=== PATIENT | male | born 1955 | race Caucasian/White ===

== ENCOUNTER 2021-01-24 09:21 | Inpatient (IN) ==
--- NOTE | 2021-01-13 16:18 | PAT Medication Instructions ---
Medication Instructions Date of Service January 13, 2021 Home Medications hydrocodone 7.5 mg-acetaminophen 325 mg tablet 1 tab PO Q8H PRN nifedipine 90 mg tablet,extended release 90 mg PO QAM prednisone 20 mg tablet 20 mg PO UD verapamil 40 mg tablet 40 mg PO QAM Continue as directed prednisone 20 mg tablet 20 mg PO UD Take morning of surgery With a small sip of water, OTHERWISE NOTHING TO EAT OR DRINK AFTER MIDNIGHT: hydrocodone 7.5 mg-acetaminophen 325 mg tablet 1 tab PO Q8H PRN (okay to take up to 4 hours prior to surgery if needed) nifedipine 90 mg tablet,extended release 90 mg PO QAM verapamil 40 mg tablet 40 mg PO QAM Other Notes If you have any questions please call us at [phone] or [phone] or [phone] or [phone]
--- NOTE | 2021-01-17 10:52 | Anesthesiology Consultation ---
Date of Service January 17, 2021 Assessment & Plan (1) Encounter for pre-operative examination: Chart Review Chart Review: Acceptable Risk for Surgery (pending preop Covid testing results ) and Patient seen in Pre Admission Testing Per PAT appt on 01/17/21, patient denies any recent travel or large group activities. Pt vaccinated for Covid. No known Covid positive contacts or Covid related symptoms. No known Covid infection in the past 90 days. Preop Covid testing scheduled 01/27/21= will await results. Educated on importance of self quarantining, social distancing and wearing mask in public both for the patient after Covid testing done Teaching & Discussion Pre-Anesthesia Teaching/Discussion Notes: Instructed NPO after midnight before surgery,except medications with 15 cc of water. Medication instructions provided according to the [facility] guidelines. History Surgery Operation Date: 01/31/21 10:05 Proposed Procedures p L4-S1 Decompression Fusion, Spinal Cord Monitoring - Eliceo Calixto DO Height/Weight Height: 6 ft Weight: 106.2 kg Allergies Allergy/AdvReac Type Severity Reaction Status Date / Time No Known Allergies Allergy Verified 01/13/21 14:46 Medications Home Medications Medication Instructions Recorded Confirmed Last Taken hydrocodone 7.5 mg-acetaminophen 1 tab PO Q8H PRN 01/13/21 01/13/21 Unknown 325 mg tablet nifedipine 90 mg tablet,extended 90 mg PO QAM 01/13/21 01/13/21 Unknown release prednisone 20 mg tablet 20 mg PO UD 01/13/21 01/13/21 Unknown verapamil 40 mg tablet 40 mg PO QAM 01/13/21 01/13/21 Unknown Past Medical History Medical History Herniated disc Located lumbar disc- causing severe pain. Not able to move or walk much Hypertension Exercise / Class Metabolic Activity II 4-5 Yardwork/Stairs/Walk up hill (one flight of stairs - no chest pain or SOB. With exception to the last three weeks- back pain severe- decreased activ ity ) Past Surgical History Surgical History Hx of wisdom tooth extraction Past Anesthesia History No Hx of Anesthesia Complications and No Family Hx of Anesthesia Complications History of PONV No Hx of PONV and Hx of Motion Sickness Social History Smoking Status: Never smoker Do You Dip or Chew Tobacco: No Hx Alcohol Use: Yes Alcohol type: hard liquor alcohol intake frequency: a few times a month Hx Substance Use: No substance use type: does not use Review of Systems Hx of snoring - no witnessed apnea. No hx of sleep study Patient denies chest pain, shortness of breath, dyspnea on exertion, reflux, cough, wheezing, palpitations. No hx of seizures, stroke, NM. No hx of blood clots or blood transfusions On two weeks tapering steroid- has one more week left as of 01/17/21 Physical Exam Vital Signs VITALS BP 155/83 P 91 TEMP 97.7 SP02 100% RESP 16 Constitutional no acute distress ENMT Mouth: no TMJ clicking Thyromental Distance: > or= 3.5 Finger Breadths (3.5) Mallampati Class: I Missing molar Neck + limited neck extension (moderate ) Respiratory normal respiratory effort; no respiratory distress Auscultation: lungs clear to auscultation bilaterally; no wheezes Cardiovascular Rate/Rhythm: regular rate and regular rhythm Heart Sounds: no murmur Vessels: no carotid bruit Musculoskeletal Spine: no pain with cervical ROM Extremities: extremities normal to inspection Psychiatric Orientation: alert Lab Results Anesthesia Preop Results Results Anesthesia Widget: WBC 10.41 K/uL (4.8-10.8) 01/17/21 Hgb 15.6 g/dL (14.0-18.0) 01/17/21 Hct 46.1 % (42-52) 01/17/21 Plt 452 K/uL (130-400) H 01/17/21 Na 136 mmol/L (136-145) 01/17/21 K 3.8 mmol/L (3.5-5.1) 01/17/21 Cl 103 mmol/L (98-107) 01/17/21 CO2 26 mmol/L (21-32) 01/17/21 BUN 20 mg/dl (7-18) H 01/17/21 Creat 0.95 mg/dl (0.6-1.4) 01/17/21 Glucose Level 132 mg/dl (70-99) H 01/17/21 PT 10.3 Seconds (9.0-12.0) 01/17/21 PTT 24.6 Seconds (21.0-31.0) 01/17/21 INR 1.0 (0.9-1.1) 01/17/21 Urine Color Yellow 01/17/21 Urine Appearance Clear (Clear) 01/17/21 Urine pH 5.0 (4.5-7.5) 01/17/21 Urine Specific [place] 1.009 (1.000-1.030) 01/17/21 Urine Protein Negative (Negative) 01/17/21 Urine Glucose (UA) Negative (Negative) 01/17/21 Urine Ketones Trace (Negative) H 01/17/21 Urine Blood Negative (Negative) 01/17/21 Urine Nitrite Negative (Negative) 01/17/21 Urine Bilirubin Negative (Negative) 01/17/21 Urine Urobilinogen Negative (Negative) 01/17/21 Urine Leukocyte Esterase Negative (Negative) 01/17/21 Blood Type A Positive 01/17/21 Antibody Screen NEGATIVE 01/17/21 Testing Electrocardiogram Date: 01/17/21 Findings: + NSR @ (84bpm ) Normal EKG per cardio. Chest X-Ray Date: 01/17/21 Findings: + NAD
[~2021-01-24 09:21] MED LIST: ACETAMINOPHEN 500 MG TAB PO SCH; CeleBREX 200 MG CAP PO SCH; GABAPENTIN 300 MG CAP PO SCH; LR 15ML/HR IV SCH; ceFAZolin 2000MG 2,000 MG/15 ML SYR IV SCH
[2021-01-24] MEDS ORDERED: NEOSTIGMINE METHYLSULFATE 1 MG/ML 10ML VIAL ONE (10:13)
[2021-01-24] MEDS ORDERED: ONDANSETRON INJ 2 MG/ML 2 ML VIAL ONE (10:13)
[2021-01-24] MEDS ORDERED: DEXAMETHASONE SOD INJ 4 MG/ML VIAL ONE (10:13)
[2021-01-24] MEDS ORDERED: GLYCOPYRROLATE 0.2 MG/ML VIAL ONE (10:13)
[2021-01-24] MEDS ORDERED: PROPOFOL IV EMULSION 10 MG/ML 20 ML VIAL IV ONE (10:13)
[2021-01-24] MEDS ORDERED: ROCURONIUM BROMIDE 10 MG/ML 5 ML VIAL IV ONE ×3 (10:13→12:16)
[2021-01-24] MEDS ORDERED: fentaNYL citrate 100 MCG/2 ML VIAL ONE ×2 (10:14→13:12)
[2021-01-24] MEDS ORDERED: HYDROmorphone INJ 2 MG/ML SYR/VIAL IV PRN (11:01)
[2021-01-24] MEDS ORDERED: BUPIVACAINE/EPINEPHRINE 0.5% MPF 1:200,000 30 ML VIAL ONE (11:01)
[2021-01-24] MEDS ORDERED: ONDANSETRON INJ 2 MG/ML 2 ML VIAL IV PRN ×2 (11:01→15:28)
[2021-01-24] MEDS ORDERED: ATROPINE SULFATE 0.1 MG/ML 10ML SYR IV PRN (11:01)
[2021-01-24] MEDS ORDERED: PROMETHAZINE HCL 12.5 MG in SODIUM CHLORIDE 0.9% 50 ML IV PRN ×2 (11:01→15:28)
[2021-01-24] MEDS ORDERED: ePHEDrine sulfate 50 MG/ML AMP IV PRN (11:01)
--- NOTE | 2021-01-24 11:04 | History & Physical Bridge Note ---
Date of Service January 24, 2021 History & Physical Bridge Note I have examined the patient, reviewed the History & Physical and in the interval since the performance of the History & Physical I have noted the following changes of clinical significance: no changes noted
--- NOTE | 2021-01-24 11:05 | History & Physical Report ---
Date of Service January 24, 2021 Assessment & Plan (1) Neurogenic claudication due to lumbar spinal stenosis: Plan: L4-S1 decompression fusion History of Present Illness Chief Complaint: Back and leg pain Primary Care Provider: SHANTELL DRAPER This is a 65-year-old male presents with chronic persistent back and leg pain. Failing course of nonoperative care is here for surgical intervention. Allergies Allergy/AdvReac Type Severity Reaction Status Date / Time No Known Allergies Allergy Verified 01/24/21 09:44 Home Medications Medication Instructions Recorded Confirmed Type hydrocodone 7.5 mg-acetaminophen 1 tab PO Q8H PRN 01/13/21 01/24/21 History 325 mg tablet nifedipine 90 mg tablet,extended 90 mg PO QAM 01/13/21 01/24/21 History release prednisone 20 mg tablet 20 mg PO UD 01/13/21 01/24/21 History verapamil 40 mg tablet 40 mg PO QAM 01/13/21 01/24/21 History Past Med/Surg History Medical History Herniated disc Located lumbar disc- causing severe pain. Not able to move or walk much Hypertension Surgical History Hx of wisdom tooth extraction Social History Smoking Status: Never smoker Second Hand Exposure: No; Do You Dip or Chew Tobacco: No; Tobacco Cessation Education Requested by Patient: No Hx Alcohol Use: Yes Alcohol type: hard liquor Hx Substance Use: No Preferred Language: Chinese Communication Ability: Effective Supervisor [employer] Required: No Beliefs That Will Affect Care: None Current Living Situation: Spouse Other Information That Helps Us Care for You: No Feels Safe at Home: Yes Safety Concerns: Feels Safe At This Time Assistive Devices: Walker Physical Exam Physical Exam: Patient is alert and oriented Heart regular in rhythm Lungs clear to auscultation Results & Data ([facility]) Vital Signs (Past 12 Hours) Vital Signs Temp Pulse Resp BP Pulse Ox 01/24/21 09:52 36.6 C 107 H 18 140/78 98
[2021-01-24] MEDS ORDERED: FLOSEAL HEMOSTATIC MATRIX 10ML TOP ONE (12:20)
--- NOTE | 2021-01-24 14:06 | Operative Report ---
Post Operative Report Pre & Post Diagnosis Operation Date: 01/24/21 11:35 Pre-Op Diagnosis: Neurogenic claudication due to lumbar spinal stenosis Post-Op Diagnosis: Neurogenic claudication due to lumbar spinal stenosis I identified the patient and participated in the time-out.: Yes Procedure Operation Date: 01/24/21 11:35 Actual Procedures #1 lumbar compression with bilateral medial facetectomies and foraminotomies L3- L4, L4-L5 and L5-S1. #2 posterior spinal fusion L4-5 L5-S1. #3 placed posterior instrumentation L4-5 L5-S1. #4 interbody fusion L4-5 L5-S1. #5 placement peek cage 13 x 26 mm at L4-5 and L5-S1. #6 placement locally harvested morselized autograft in the posterior lateral gutters. #7 placement infuse collagen sponge, master graft in the posterior lateral gutters and I factor in the interbody space. Surgeon Eliceo Calixto, DO Occupational Therapy Technician Ling Perry Estimated Blood Loss 350 Findings See Below Patient is 6 foot tall weighing over 105 kg with a BMI in excess of 31. Patient's body habitus did contribute to significant technical difficulty requiring her deepest retractors and longest instruments in order to perform his procedure. This at least 25% increase to the operative time. Specimens None Indications This is a 65-year-old male who presents with bulge diagnosis after failing course of nonoperative care is here for the above-mentioned procedure. Description of Procedure Patient was met with identified informed consent obtained. Patient was then taken to the operative suite underwent a patient placed in a prone position the [place] abdominal spine frame. All bony prominences well-padded eyes inspected to ensure no external pressure placed upon the. This point lumbar spine was prepped and draped in a sterile fashion. Sharp dissection with the assistance of Bovie cautery was performed down to and exposing the lamina and transverse processes of L4-L5 and sacral ala bilaterally. From caudal cephalad fashion complete laminectomy of L5 L4 partial laminectomy of L3 was performed including bilateral medial facetectomies and foraminotomies addressing severe spinal stenosis. Pedicle screws then placed in L4-L5 and S1 levels bilaterally with assistance of fluoroscopy and the proper sized brian placed. By way of a transforamen approach and left complete discectomy of L5-S1 was performed endplates curetted to subcortical bleeding bone and a 13 x 26 mm peek cage filled with I factor tapped in position. Then proceeded L4-L5 and again by way of a transforaminal portion left complete discectomy was performed endplates curetted to subcortically bone and again a 13 x 26 mm peek cage filled with I factor tapped in position. The rods were then compressed locked in final position bilaterally. The transverse processes of L 4 L5 and sacral ala burred to subcortical bleeding bone. Infuse collagen sponge master graft and local harvested morselized autograft was placed in the posterior gutters. 15 round GOLDIE drain inserted. The incision was then closed with 1 Vicryl fascia 2-0 Vicryl subcutaneously and 4 Monocryl for final skin closure. Steri-Strip sterile dressings placed. Patient waken taken PACU stable condition. Please note spinal cord monitoring was utilized at the procedure no changes noted. Lastly Ling Perry was present at the entire procedure about the patient positioning complex portions of the surgery and final skin closure. I attest to the content of the Intraoperative Record and any orders documented therein. Any exceptions are noted below.
[2021-01-24] MEDS: fentaNYL citrate 100 MCG/2 ML VIAL IV PRN ×2 (14:37→14:48)
--- NOTE | 2021-01-24 14:52 | Fluoroscopy Report ---
FL lumbar spine 2-3V HISTORY: 65 years-old Male L4-S1 DECOMPRESSION AND FUSION COMPARISON: None TECHNIQUE: 2 spot fluoroscopic images of the lumbar spine were obtained utilizing 31.0 seconds fluoro scopy time FINDINGS: Posterior interbody brian fusion with discectomy changes are noted at L4-S1. Alignment appears satisfac tory. The hardware appears intact. No unexpected opaque foreign body identified. IMPRESSION: Fluoroscopic assistance as above. ACT 112: Negative or not required by law. The above report was generated using voice recognition software. It may contain grammatical, syntax o r spelling errors. Electronically signed by: Bright Mott M.D. 01/24/2021 2:51 PM
--- NOTE | 2021-01-24 15:06 | Anesthesiology Progress Note ---
Date of Service January 24, 2021 Anesthesia Post Procedure Vital Signs Vital Signs: Temp Pulse Pulse Resp BP BP Pulse Ox 01/24/21 14:55 84 16 155/88 H 98 01/24/21 14:45 79 22 152/84 H 98 01/24/21 14:35 73 20 145/79 H 100 01/24/21 14:25 74 19 152/86 H 100 01/24/21 14:17 37.2 C 82 20 147/79 H 100 01/24/21 09:52 36.6 C 107 H 18 140/78 98 Pain Intensity Right Lateral Thigh: Pain Intensity: 3 Back: Pain Intensity: 3 Transfer of Care Handoff Completed per policy Notes Mental Status: alert / awake / arousable and participated in evaluation Patient Amnestic to Procedure: Yes Nausea / Vomiting: adequately controlled Pain: adequately controlled Airway Patency, RR, SpO2: stable & adequate BP & HR: stable & adequate Hydration State: stable & adequate Anesthetic Complications: no major complications apparent and Pt Satisfied with anesthetic care
[2021-01-24] MEDS ORDERED: traMADol HCL 50 MG TABLET PO PRN (15:28)
[2021-01-24] MEDS ORDERED: HYDROmorphone INJ 1 MG/ML SYRINGE IV PRN (15:28)
[2021-01-24] MEDS ORDERED: ONDANSETRON 4 MG OD TAB PO PRN (15:28)
[2021-01-24] MEDS ORDERED: DO NOT ADMINISTER FLU VACCINE PRN (15:28)
[2021-01-24] MEDS ORDERED: predniSONE 20 MG TAB PO SCH (15:28)
[2021-01-24] MEDS ORDERED: SOD PHOSPHATE/SOD BIPHOSPHATE ENEMA 132 ML BTL PR PRN (15:28)
[2021-01-24] MEDS ORDERED: METOCLOPRAMIDE HCL INJ 5 MG/ML 2 ML VIAL IV PRN (15:28)
[2021-01-24] MEDS ORDERED: hydrOXYzine HCl 25 MG TAB PO PRN (15:28)
[2021-01-24] MEDS ORDERED: LORazepam 0.5 MG TAB PO PRN (15:28)
[2021-01-24] MEDS ORDERED: NALOXONE HCL 0.4 MG/1 ML VIAL/CARP IV PRN (15:28)
[2021-01-24] MEDS ORDERED: ALUMINUM/MAGNESIUM SUSP 30 ML UDC PO PRN (15:28)
[2021-01-24] MEDS ORDERED: ACETAMINOPHEN 500 MG TAB PO PRN (15:28)
[2021-01-24] MEDS ORDERED: MAGNESIUM HYDROXIDE SUSP 30 ML UDC PO PRN (15:28)
[2021-01-24] MEDS ORDERED: DO NOT ADMINISTER PNEUMOCOCCAL VACCINE PRN (15:28)
[2021-01-24] MEDS ORDERED: FAMOTIDINE 20 MG TAB PO PRN (15:28)
[2021-01-24] MEDS ORDERED: diphenhydrAMINE Capsule 25 MG CAP PO PRN (15:28)
[2021-01-24] MEDS ORDERED: HYDROmorphone INJ 0.5 MG/0.5 ML SYR IV PRN (15:28)
[2021-01-24] MEDS ORDERED: LORazepam 0.5 MG/1 ML VIAL IV PRN (15:28)
[2021-01-24] MEDS ORDERED: ACETAMINOPHEN 1,000 MG/100 ML VIAL IV PRN (15:28)
[2021-01-24] MEDS: LACTATED RINGER'S 1,000 ML IV SCH ×2 (16:19→22:49)
[2021-01-24] MEDS: KETOROLAC TROMETHAMINE 15 MG/ML VIAL IV SCH ×2 (17:27→22:31)
[2021-01-24] MEDS: VERAPAMIL HCL 40 MG TAB PO SCH (17:59)
[2021-01-24] MEDS: NIFEdipine EXTENDED REL 30 MG TABCR PO SCH (17:59)
--- NOTE | 2021-01-24 18:06 | Hospitalist Consultation ---
Date of Consultation January 24, 2021 Assessment & Plan (1) Neurogenic claudication due to lumbar spinal stenosis: s/p #1 lumbar compression with bilateral medial facetectomies and foraminotomies L3-L4, L4-L5 and L5-S1. #2 posterior spinal fusion L4-5 L5-S1. #3 placed posterior instrumentation L4-5 L5-S1. #4 interbody fusion L4-5 L5-S1. #5 placement peek cage 13 x 26 mm at L4-5 and L5-S1. #6 placement locally harvested morselized autograft in the posterior lateral gutters. #7 placement infuse collagen sponge, master graft in the posterior lateral gutters and I factor in the interbody space. with Dr Calixto on 01/24 EBL 350cc Pre-op h/h 15.6/46.1 Ordered LR @150cc/hr until able to tolerate PO Cefazolin abx Dose of 4mg dexamethasone was given, expect elevation in WBC on AM labs -- He also just completed a prednisone taper yesterday Pain control, bowel regimen, PT/OT, DVT prophylaxis per primary service Labs in AM (2) Hypertension: Chronic Elevated post-operatively but he did not take his usual medication yet today EKG NSR from pre-admission testing Continue home nifedipine 90mg, verapamil 40mg daily --> dose given now Hydralazine prn SBP >180 or DBP >100 Continue to monitor (3) DVT prophylaxis: Chemical contraindicated Donavon Riggins ordered Dispo: continued inpatient stay Thank you for allowing hospitalist service to participate in the care of Mr Monteiro. Hospitalist service will follow along. History of Present Illness Reason for Consultation: medical management Requesting Physician: Dr Calixto Attending Physician: Eliceo Calixto DO History of Present Illness 65yo male with PMHx significant for hypertension, spinal stenosis failed outpatient management of chronic back pain. He notes he previously had been seen by his PCP and given medications for back pain, saw pain management and failed injections. Also trialed PT. He initially said he saw Dr. Santana because he thought he needed a hip replacement. Recently was on steroids and just completed taper (started at 80mg daily) as switched to by Sekou from ortho spine during initial consultation. He notes last Sunday was unable to get up out of bed and requested to have surgery moved him, which thankfully they were able to accommodate. Underwent L4-S1 decompression fusion with Dr. Calixto today. He notes he did not take his BP medications this morning as he took 10mg pain pill and he notes recently was taking up to 20mg oxycodone at a time from his PCP as the pain was so significant. He notes he has drops with increased pain medications and typically runs BP 140-150s/80s at home and frequently checks this. He does note he is a "responder" to prednisone and noted increases in pressures while on this medication. He just got his BP medications about 30 minutes prior and denied any chest pain , headache, blurred vision/visual changes, shortness of breath, abd pain, n/v. Strength equal to b/l LE. Chronic numbness to R big toe. Ate dinner without issue but not very hungry for this food. Would like to get up to chair when able to -- asked nursing to assist. Plans on remaining inpatient 2-3 days. Never smoker/no chewing tobacco. Wine/drink on a Sunday with the on occasion. Works as a contractor/ Allergies Allergy/AdvReac Type Severity Reaction Status Date / Time No Known Allergies Allergy Verified 01/24/21 09:44 Home Medications Medication Instructions Recorded Confirmed Type hydrocodone 7.5 mg-acetaminophen 1 tab PO Q8H PRN 01/13/21 01/24/21 History 325 mg tablet nifedipine 90 mg tablet,extended 90 mg PO QAM 01/13/21 01/24/21 History release prednisone 20 mg tablet 20 mg PO UD 01/13/21 01/24/21 History verapamil 40 mg tablet 40 mg PO QAM 01/13/21 01/24/21 History Patient History Medical History Herniated disc Located lumbar disc- causing severe pain. Not able to move or walk much Hypertension Surgical History Hx of wisdom tooth extraction Social History Smoking Status: Never smoker Second Hand Exposure: No; Do You Dip or Chew Tobacco: No; Tobacco Cessation Education Requested by Patient: No Hx Alcohol Use: Yes Alcohol type: hard liquor Hx Substance Use: No Preferred Language: Chadian Communication Ability: Effective Hall Cleaner Required: No Beliefs That Will Affect Care: None Current Living Situation: Spouse Other Information That Helps Us Care for You: No Feels Safe at Home: Yes Safety Concerns: Feels Safe At This Time Assistive Devices: Glasses and Walker Review of Systems Review of Systems: All systems reviewed & are unremarkable except as noted in HPI & below Physical Exam Constitutional: WD/WN, vitals as above Eyes: no eyelid abnormality and no scleral abnormality ENMT: mmm Neck: normal visual inspection and trachea midline Respiratory: normal respiratory effort, lungs clear to auscultation on room air Cardiovascular: RRR, no murmur, no edema Gastrointestinal (Abdomen): normal bowel sounds, soft, nontender, no hepatosplenomegaly Musculoskeletal: dressing to lumbar spine c/d/i scant bloody drainage to GOLDIE drain NVI with exception neuropathy R toe to light touch (pressure intact) strength 5/5 b/l LE pulses palpable melvin hose in place Skin: warm, dry Neurologic: PERRL, EOMI, accommodation nl, no face palsy, no dysarthria Psychiatric: A+Ox3, euthymic affect Lymphatic: no cervical or axillary lymphadenopathy Results & Data Results & Data ([facility]) Vital Signs (Past 12 Hours) Vital Signs Temp Pulse Pulse Pulse Resp BP BP 01/24/21 17:29 36.5 C 84 18 180/90 H 01/24/21 16:22 75 16 150/76 H 01/24/21 15:58 36.6 C 82 18 151/74 H 01/24/21 15:20 36.9 C 84 16 153/74 H 01/24/21 15:05 37.4 C 86 16 139/68 01/24/21 14:55 84 16 155/88 H 01/24/21 14:45 79 22 152/84 H 01/24/21 14:35 73 20 145/79 H 01/24/21 14:25 74 19 152/86 H 01/24/21 14:17 37.2 C 82 20 147/79 H 01/24/21 09:52 36.6 C 107 H 18 140/78 Pulse Ox 01/24/21 17:29 95 01/24/21 16:22 97 01/24/21 15:58 95 01/24/21 15:20 95 01/24/21 15:05 96 01/24/21 14:55 98 01/24/21 14:45 98 01/24/21 14:35 100 01/24/21 14:25 100 01/24/21 14:17 100 01/24/21 09:52 98 Laboratory Results 01/24/21 01/24/21 01/24/21 Range/Units 09:40 08:40 08:40 COVID-19 Eval Order Covid19 [facility] SARS-CoV-2, RNA, NAAT NEGATIVE (NEGATIVE) Blood Type A Positive Antibody Screen NEGATIVE Crossmatch See Detail Diagnostic Findings Lumbar Spine X-Ray 01/24/21 11:35 [place] lumbar spine 2-3V HISTORY: 65 years-old Male L4-S1 DECOMPRESSION AND FUSION COMPARISON: None TECHNIQUE: 2 spot fluoroscopic images of the lumbar spine were obtained utilizing 31.0 seconds fluoroscopy time FINDINGS: Posterior interbody brian fusion with discectomy changes are noted at L4-S1. Alignment appears satisfactory. The hardware appears intact. No unexpected opaque foreign body identified. IMPRESSION: Fluoroscopic assistance as above. ACT 112: Negative or not required by law. The above report was generated using voice recognition software. It may contain grammatical, syntax or spelling errors. Electronically signed by: Bright Mott M.D. 01/24/2021 2:51 PM PG Care Time/CCT Total # of Minutes Spent Total Time Spent with Patient: Total time spent is greater than 50% in coordination of care (as documented) at patient's floor/unit and/or counseling patient: Coding Level of Care Code 00694 Inpt Consult Level 3 Diagnoses Neurogenic claudication due to lumbar spinal stenosis M48.062 Hypertension I10 DVT prophylaxis Z29.9
[2021-01-24] MEDS ORDERED: hydrALAZINE HCL 20 MG/ML VIAL IV PRN (18:44)
[2021-01-24] MEDS: ceFAZolin 2000MG 2,000 MG/15 ML SYR IV SCH (20:26)
[2021-01-24] MEDS: DOCUSATE SODIUM/SENNA 50/8.6MG TAB PO SCH (20:26)
[2021-01-24] MEDS: oxyCODONE HCL IR 5 MG TAB (IMMEDIATE RELEASE) PO PRN (21:50)
[2021-01-25] MEDS: POLYETHYLENE (MIRALAX) 17 GM PACK PO SCH ×3 (04:48→17:48)
[2021-01-25] MEDS: KETOROLAC TROMETHAMINE 15 MG/ML VIAL IV SCH ×2 (04:48→10:50)
[2021-01-25] MEDS: ceFAZolin 2000MG 2,000 MG/15 ML SYR IV SCH (04:48)
[2021-01-25 06:45] LABS: Eosinophils # (auto) 0.06 K/uL (0-0.5); Eosinophils % (auto) 0.5 %; Hematocrit (blood only) 39.3 % (42-52); Immature Granulocytes # (auto) 0.02 K/uL (0.00-0.02); Immature Granulocytes % (auto) 0.2 %; Lymphocytes # (auto) 1.87 K/uL (1.2-3.4); Lymphocytes % (auto) 17.1 %; Mean Corpuscular Hemoglobin 30.2 pg (25-34); Mean Corpuscular Hgb Conc 33.1 g/dL (32-36); Mean Corpuscular Volume 91.2 fL (80-100); Mean Platelet Volume 11.1 fL (7.4-10.4); Monocytes # (auto) 0.83 K/uL (0.11-0.59); Monocytes % (auto) 7.6 %; Neutrophils # (auto) 8.14 K/uL (1.4-6.5); Neutrophils % (auto) 74.6 %; Platelet Count 312 K/uL (130-400); RDW Standard Deviation 47.3 fL (36.4-46.3); Red Blood Count 4.31 M/uL (4.7-6.1); White Blood Count 10.92 K/uL (4.8-10.8)
[2021-01-25 07:09] LABS: BUN Creatinine Ratio 14.1 (10-20); Calcium 9.2 mg/dl (8.5-10.1); Creatinine Clr Calc Pharmacy 112.5 ml/min; Est GFR (African American) 107.3 ml/min; Est GFR (Non-African American) 92.6 ml/min; Potassium 3.9 mmol/L (3.5-5.1)
--- NOTE | 2021-01-25 07:53 | Hospitalist Progress Note ---
Date of Service January 25, 2021 Assessment & Plan (1) Neurogenic claudication due to lumbar spinal stenosis: Plan: POD#1 s/p #1 lumbar compression with bilateral medial facetectomies and foraminotomies L3-L4, L4-L5 and L5-S1. #2 posterior spinal fusion L4-5 L5-S1. #3 placed posterior instrumentation L4-5 L5-S1. #4 interbody fusion L4-5 L5-S1. #5 placement peek cage 13 x 26 mm at L4-5 and L5-S1. #6 placement locally harvested morselized autograft in the posterior lateral gutters. #7 placement infuse collagen sponge, master graft in the posterior lateral gutters and I factor in the interbody space. with Dr Calixto on 01/24. EBL 350cc. Pre-op h/h 15.6/46.1 H/h dropped to 13/39.3 -- acute blood loss anemia from surgery as well as some dilutional effect from IVF post-operatively WBC 10.9k but had been on prednisone taper and also dexamethasone 4mg yesterday -- has been afebrile PT/OT/pain control/bowel regimen per primary service DVT proph with SCDs/jalil hemphill (2) Hypertension: Plan: Chronic Elevated post-operatively but he did not take his usual medications prior to surgery due to taking pain medication and having low BPs with such Continue home nifedipine 90mg, verapamil 40mg daily BPs improved --> 132/81 currently Hydralazine prn SBP >180 or DBP >100 Continue to monitor (3) DVT prophylaxis: Plan: Chemical contraindicated Jalil hemphill, SCDs ordered Dispo: continued inpatient stay Thank you for allowing hospitalist service to participate in the care of Mr Monteiro. Hospitalist service will sign off at this time. Please call with any questions/concerns. Admission and Anticipated Discharge Date Admission Date: January 24, 2021 Subjective Patient worked with therapy this morning. Doing well. Pain controlled. Up in chair having IV changed this morning. Symptoms controlled. Plans for d/c in next 1-2 days. Review of Systems Review of Systems: All systems reviewed & are unremarkable except as noted in HPI & below Physical Exam Physical Exam: WN, WD, NAD up in chair having IV changed Head atraumatic, normocephalic Trachea midline without deviation Respiratory without accessory muscle use, distress, audible wheezing or tachypnic, cough Cardiac; RRR, no m/r/g MSK/Neuro: dressing to lumbar spine c/d/i. GOLDIE scant drainage. NVI with exception to light touch R great toe, otherwise sensation to pressure intact. Calves non- tender, pulses palpable bilaterally Skin warm, dry Results & Data Results & Data ([facility]) Vital Signs (Past 12 Hours) Vital Signs Temp Pulse Pulse Resp BP Pulse Ox 01/25/21 07:46 36.9 C 76 16 132/81 97 01/25/21 02:54 36.7 C 76 16 119/65 97 01/24/21 21:47 36.6 C 71 16 143/83 H 99 Laboratory Results 01/25/21 01/25/21 01/24/21 Range/Units 05:48 05:48 09:40 WBC 10.92 H (4.8-10.8) K/uL RBC 4.31 L (4.7-6.1) M/uL Hgb 13.0 L (14.0-18.0) g/dL Hct 39.3 L (42-52) % MCV 91.2 (80-100) fL MCH 30.2 (25-34) pg MCHC 33.1 (32-36) g/dL RDW Std Deviation 47.3 H (36.4-46.3) fL RDW Coeff of Simran 14.0 (11.5-14.5) % Plt Count 312 (130-400) K/uL MPV 11.1 H (7.4-10.4) fL Immature Gran % (Auto) 0.2 % Neut % (Auto) 74.6 % Lymph % (Auto) 17.1 % [place] % (Auto) 7.6 % Eos % (Auto) 0.5 % Baso % (Auto) 0.0 % Neut # (Auto) 8.14 H (1.4-6.5) K/uL Lymph # (Auto) 1.87 (1.2-3.4) K/uL [place] # (Auto) 0.83 H (0.11-0.59) K/uL Eos # (Auto) 0.06 (0-0.5) K/uL Baso # (Auto) 0.00 (0-0.2) K/uL Immature Gran # (Auto) 0.02 (0.00-0.02) K/uL Sodium 137 (136-145) mmol/L Potassium 3.9 (3.5-5.1) mmol/L Chloride 104 (98-107) mmol/L Carbon Dioxide 28 (21-32) mmol/L Anion Gap 5.0 (3-11) BUN 11 (7-18) mg/dl Creatinine 0.81 (0.6-1.4) mg/dl Est Cr Clr Drug Dosing 112.5 ml/min Est GFR ( Amer) 107.3 ml/min Est GFR (Non-Af Amer) 92.6 ml/min BUN/Creatinine Ratio 14.1 (10-20) Glucose 92 (70-99) mg/dl Calcium 9.2 (8.5-10.1) mg/dl COVID-19 Eval Order SARS-CoV-2, RNA, NAAT (NEGATIVE) Blood Type A Positive Antibody Screen NEGATIVE Crossmatch See Detail 01/24/21 01/24/21 Range/Units 08:40 08:40 WBC (4.8-10.8) K/uL RBC (4.7-6.1) M/uL Hgb (14.0-18.0) g/dL Hct (42-52) % MCV (80-100) fL MCH (25-34) pg MCHC (32-36) g/dL RDW Std Deviation (36.4-46.3) fL RDW Coeff of Simran (11.5-14.5) % Plt Count (130-400) K/uL MPV (7.4-10.4) fL Immature Gran % (Auto) % Neut % (Auto) % Lymph % (Auto) % [place] % (Auto) % Eos % (Auto) % Baso % (Auto) % Neut # (Auto) (1.4-6.5) K/uL Lymph # (Auto) (1.2-3.4) K/uL [place] # (Auto) (0.11-0.59) K/uL Eos # (Auto) (0-0.5) K/uL Baso # (Auto) (0-0.2) K/uL Immature Gran # (Auto) (0.00-0.02) K/uL Sodium (136-145) mmol/L Potassium (3.5-5.1) mmol/L Chloride (98-107) mmol/L Carbon Dioxide (21-32) mmol/L Anion Gap (3-11) BUN (7-18) mg/dl Creatinine (0.6-1.4) mg/dl Est Cr Clr Drug Dosing ml/min Est GFR ( Amer) ml/min Est GFR (Non-Af Amer) ml/min BUN/Creatinine Ratio (10-20) Glucose (70-99) mg/dl Calcium (8.5-10.1) mg/dl COVID-19 Eval Order Covid19 [facility] SARS-CoV-2, RNA, NAAT NEGATIVE (NEGATIVE) Blood Type Antibody Screen Crossmatch PG Care Time/CCT Total # of Minutes Spent Total Time Spent with Patient: Total time spent is greater than 50% in coordination of care (as documented) at patient's floor/unit and/or counseling patient: Coding Level of Care Code 41975 Subseq Hosp Care Lvl 1 Diagnoses Neurogenic claudication due to lumbar spinal stenosis M48.062 Hypertension I10 DVT prophylaxis Z29.9
[2021-01-25] MEDS ORDERED: Nursing to Pharmacy Communication SCH (08:45)
[2021-01-25] MEDS: NIFEdipine EXTENDED REL 30 MG TABCR PO SCH (09:14)
[2021-01-25] MEDS: VERAPAMIL HCL 40 MG TAB PO SCH (09:14)
--- NOTE | 2021-01-25 10:27 | Orthopedic Progress Note ---
Date of Service January 25, 2021 Assessment & Plan (1) Neurogenic claudication due to lumbar spinal stenosis: Plan: This time continue physical therapy monitor his GOLDIE output hopefully discharge home in the next day or so. Admission and Anticipated Discharge Date Admission Date: January 24, 2021 Subjective Back pain controlled leg symptoms markedly improved Physical Exam Physical Exam: Patient is good strength testing appears comfortable. Results & Data ([facility]) Vital Signs (Past 12 Hours) Vital Signs Temp Pulse Pulse Resp BP Pulse Ox 01/25/21 07:46 36.9 C 76 16 132/81 97 01/25/21 02:54 36.7 C 76 16 119/65 97
[2021-01-25] MEDS ORDERED: VERAPAMIL HCL 40 MG TAB PO SCH (16:00)
[2021-01-25] MEDS ORDERED: NIFEdipine EXTENDED REL 30 MG TABCR PO SCH (16:00)
[2021-01-25] MEDS: oxyCODONE HCL IR 5 MG TAB (IMMEDIATE RELEASE) PO PRN ×2 (16:53→21:18)
[2021-01-25] MEDS: DOCUSATE SODIUM/SENNA 50/8.6MG TAB PO SCH (20:27)
[2021-01-26] MEDS: oxyCODONE HCL IR 5 MG TAB (IMMEDIATE RELEASE) PO PRN ×4 (01:13→13:51)
[2021-01-26] MEDS ORDERED: bisacodyL 10 MG SUPP PR PRN (08:00)
[2021-01-26] MEDS ORDERED: dexAMETHasone 8 MG in SYRINGE 0 ML IV SCH (09:00)
--- NOTE | 2021-01-26 10:15 | Discharge Summary ---
Date of Service January 26, 2021 Admission HPI Per Admitting Provider This is a 65-year-old male presents with chronic persistent back and leg pain. Failing course of nonoperative care is here for surgical intervention. Principal Diagnosis Lumbar spinal stenosis with neurogenic claudication Discharge Data Allergies Allergy/AdvReac Type Severity Reaction Status Date / Time No Known Allergies Allergy Verified 01/24/21 09:44 Consultations 01/24/21 15:28 Consult Hospitalist Routine Procedures Performed Operation Date: 01/24/21 11:35 Actual Procedures p L4-S1 Decompression Fusion, Spinal Cord Monitoring(Not Applicable) - Eliceo Calixto DO Ordered Studies 01/24/21 11:35 FL lumbar spine 2-3V Routine Hospital Course (1) Neurogenic claudication due to lumbar spinal stenosis: Patient underwent lumbar decompression fusion trial exhausting orthopedic for postoperative. Postop day 1 he was up and ambulating place postop day #2. Pain well controlled. GOLDIE drain decreasing probably. Excellent strength testing. Subsequent discharge home. Discharge orders instructions found the chart for further review. Total Time Total Time Spent Total Time Spent (In Minutes): 20 minutes Discharge Plan Discharge Items Patient Disposition: Home - Self-Care Reason For Visit: Unspecified Thoracic, Thoracolumbar Discharge Diagnosis: Lumbar spinal stenosis with neurogenic claudication Activity: As commented below Non-emergency contact: Primary Care Provider Call non-emergency contact if: you have any medication questions Follow-up/Referrals: Neehmias Moran MD [Primary Care Provider] - Diet: Regular Addtl Attending Provider Instructions: ACTIVITY RECOMMENDATIONS: SELF CARE INSTRUCTIONS AFTER THORACIC/LUMBAR FUSIONS 1. You may walk to your tolerance. It is good exercise for your legs and back. Expect some back and intermittent leg aches and pains. 2. You may perform "counter-top" level activities (make a sandwich, angle with a project, etc.). 3. No bending or lifting of more than 10 pounds or back twisting of any nature (roll like a log when turning in bed). 4. You may ride in a car for 20-30 minutes at a time. No driving until after your first visit with your doctor. 5. Frequent changes of position and restricting sitting to 30 minutes at a time will help limit the amount of back spasms and stiffness you may experience. 6. You may discontinue the use of ambulatory aids (cane, crutches, etc.) once your strength and confidence allow. 7. You may dye machine operator the shower and let water strike your incision when you arrive home at least once daily. Do not take a tub bath, sit in a hot tub or go into a swimming pool until after your first recheck in the office. SPECIAL CARE INSTRUCTIONS: VERY IMPORTANT TO READ AND REVIEW A. Your surgical incision has been closed with a cosmetic suture under the skin that will dissolve in about 6 weeks. In 14 days, you can use a pair of clean scissors and cut the suture that is left outside of the skin at the ends of your incision. 1. The small skin tapes can be removed 7 days after surgery if they have not fallen off by that point. 2. You may keep the wound open to air as much as possible to promote healing after post-op day number 5 unless told otherwise by your doctor. 3. If you think the wound looks like it is becoming infected (redness or worsening drainage) and/or you are experiencing fever, chill or worsening back pain and muscle spasms, contact the office so that we may evaluate you as soon as possible. B. Complications are uncommon, but please contact us if you have any signs or symptoms of: 1. wound infection (fever higher than 102.5 degrees F, redness, separation of wound, drainage, or increasing pain from the incision) 2. blood clots in legs (pain, swelling, redness and warmth in legs) 3. urinary tract infection (fever higher than 102.5 degrees F, burning upon urination or increased frequency of urination) 4. nerve problems (inability to walk on your toes or heels, numbness, loss of bowel or bladder control) 5. any other symptoms that concern you C. Please call the office at if you have any concerns or questions about your operation or recovery. D. No smoking! Smoking drastically decreases the chance of a solid fusion. E. Do not take any anti-inflammatory medications (Indocin, Advil, Motrin, Aspirin, Naprosyn, etc.) as these may inhibit the chance of a solid fusion. Tylenol is okay to take for pain. MANAGING PAIN AFTER SPINAL SURGERY 1. Narcotic medication is intended for short-term use and will be provided for surgical pain. Surgical pain usually lasts for a period of 4-6 weeks. Narcotic medication includes Percocet, Vicodin, Darvocet, Tylenol #3 or Lortab. 2. Longer-term pain is more appropriately treated with non-narcotic medication such as Tylenol ES. 3. Muscle spasm is not appropriately treated with narcotics. Muscle relaxers such as Soma, Flexeril or Skelaxin can be used along with Tylenol ES. 4. Remember that we all live with some "aches and pains". This is not unusual or uncommon after an injury or as we get older. a. Back pain is expected and may include muscle spasms for 4 to 6 weeks after surgery. The pain should gradually improve. If the pain worsens for no apparent reason, please contact the office. b. Intermittent leg pain may also be experienced and should not be concerned about unless it worsens for no apparent reason. If so, please contact the office. 5. We will provide appropriate medication within the normal guidelines of their prescribed use. We will also be very cautious and aware of potential abuse and extended duration of patients' medication needs. a. Pain medications are for your comfort and to assist with sleep and rest so that the tissue can heal. They are not provided in order to return to normal activity and should not be used through the day. To do so or worsening pain at night can result from ongoing tissue damage and development of tolerance to the prescribed medicine. 6. Please allow 2-3 days to process refills. Prescriptions will not be mailed but must be picked up at the office. FOLLOW UP VISIT: Keep your scheduled follow-up appointment. Any questions, please call the office at . Pending Studies at Discharge: No Stand-Alone Forms: My [facility], Smoking Cessation Medications and [place] Order Prescriptions: New oxycodone 5 mg tablet 5 mg PO Q6H PRN (Reason: pain, severe) Qty: 30 RF: 0 tramadol 50 mg tablet 50 mg PO Q6H PRN (Reason: pain, moderate) Qty: 30 RF: 0 Continued verapamil 40 mg Tablet 40 mg PO QAM RF: 0 nifedipine 90 mg Tablet Extended Release 90 mg PO QAM RF: 0 prednisone 20 mg Tablet 20 mg PO UD RF: 0 hydrocodone-acetaminophen 7.5-325 mg Tablet 1 tab PO Q8H PRN (Reason: Pain) RF: 0 Discharge Orders: Discharge Order (Routine); Ordered 01/26/21 Ordered By: Eliceo Calixto Admission Data Admit Date/Time: 01/24/21 14:10 Attending Provider: Eliceo Calixto Admit Provider: Eliceo Calixto Primary Care Provider: Nehemias Moran Other Providers: Michael Toro
== END 2021-01-26 14:00 | disposition home or self-care (01) | DRG 454 ==
LOC: ASU 09:21 → 3E 14:10